=== PATIENT | female | born 1995 | race Caucasian/White ===

== ENCOUNTER 2019-12-21 12:05 | Emergency (ER) | payer OTHER, SELFPAY ==
--- NOTE | ~2019-12-21 | CT_ITS ---
EXAMINATION: CTA chest PE protocol DATE: 12/21/2019 13:24 INDICATION: Shortness of breath. Left shoulder pain. TECHNIQUE: Computed tomography angiography (CTA) of the chest was performed with 100 mL Omnipaque-350 intravenous contrast timed to evaluate the pulmonary arteries. Coronal maximum intensity projection 3D-reconstructions were created by the technologist. Automated exposure control and iterative reconst ruction technique were employed. The dose-length product was 779.97 mGy-cm. COMPARISON: None. FINDINGS: There is minimal atelectasis bilaterally. No pleural effusion. The heart size is normal. No pericardial effusion. There is no pulmonary embolus. The bones are unremarkable. IMPRESSION: 1. No pulmonary embolus. Reviewed, dictated and finalized at location A. IMPRESSION: 1. No pulmonary embolus.
[2019-12-21 12:19] VITALS: BP 136/92; PULSE 112; RESP 17; TEMP 36.9; O2SAT 100
--- NOTE | 2019-12-21 12:20 | ECG_ITS ---
Measurements Intervals [place] Rate: 118 P: 46 MD: 148 QRS: 6 QRSD: 101 T: 14 QT: 347 QTc: 487 Interpretive Statements SINUS TACHYCARDIA VOLTAGE CRITERIA FOR LVH MINIMAL Q WAVES- ANTEROLAT/HIGH LAT LEADS BORDERLINE T WAVE ABNORMALITY- INFERIOR LEADS BASELINE ARTIFACT- II, III, AVL, AVF, V1 ABNORMAL ECG Electronically Signed On 12-21-2019 18:06:58 CDT by Francis Abbasi D.O.
[2019-12-21 12:42] LABS: Basophils Percent Auto 0.3 % (0.2-1.2); Eosinophils Absolute Auto 0.1 K/mm3 (0-0.3); Eosinophils Percent Auto 0.4 % (0-4.4); Hematocrit 44.4 % (37.0-47.0); Hemoglobin 15.3 g/dL (12.0-15.0); Immature Granulocyte Absolute 0.05 K/mm3 (0.00-0.031); Immature Granulocyte Percent A 0.3 % (0-0.5); Lymphocytes Absolute Auto 4.96 K/mm3 (0.9-3.2); Lymphocytes Percent Auto 32.9 % (18.3-44.2); Mean Corpuscular HGB Conc 34.5 g/dl (32-36); Mean Corpuscular Hemoglobin 30.1 pg (26-34); Mean Corpuscular Volume 87.4 fl (80-100); Mean Platelet Volume 8.7 fl (7.4-10.4); Monocytes Absolute Auto 0.8 K/mm3 (0.1-0.6); Monocytes Percent Auto 5.4 % (2.6-8.5); Neutrophils Absolute Auto 9.2 K/mm3 (1.3-6.7); Neutrophils Percent Auto 60.7 % (45.5-73.1); Platelet Count Result 331 k/mm3 (150-375); Red Blood Count 5.08 M/mm3 (4.2-5.4); Red Cell Distribution Width 12.6 % (11.5-14.5); White Blood Count 15.1 K/mm3 (4.5-10.0)
[2019-12-21 12:52] LABS: Prothrombin Time 12.6 Seconds (11.1-14.7)
[2019-12-21 12:53] LABS: Partial Thromboplastin Time 26.9 SECONDS (22.3-36.8)
[2019-12-21 12:55] LABS: Anion Gap 6 mmol/L (8-16); Blood Urea Nitrogen 11 mg/dL (7-17); Calcium 9.4 mg/dL (8.4-10.2); Carbon Dioxide 29 mmol/L (22-30); Chloride 102 mmol/L (98-107); Estimated CRCL calculation 160 ml/min; Estimated Glomerular Filt Rate > 60; Glucose 105 mg/dL (65-105); Potassium 3.6 mmol/L (3.4-5.0); Sodium 137 mmol/L (137-145)
[2019-12-21 13:01] VITALS: BP 112/71; PULSE 86; RESP 16; O2SAT 98
[2019-12-21 13:02] LABS: NT Pro B Type Natriuretic Pept 24 PG/ML (5-100)
[2019-12-21 13:06] LABS: Troponin I < 0.012 ng/mL (0.000-0.034)
--- NOTE | 2019-12-21 13:11 | ED.GENADULT ---
HPI - General Adult General Chief complaint: Extremity Injury, Upper Stated complaint: left shoulder pain Time Seen by Provider: 12/21/19 12:07 History of Present Illness HPI narrative: Patient is a 24-year-old female who presents to the ER with left shoulder pain. Is anterior aspect left shoulder near the chest wall. Pain was sudden onset around 7 AM. It is persisted and not gotten better. Its worse with taking deep breaths. She feels as if she is short of breath when she exerts herself. No alleviating factors that she is noted. No infectious symptoms. Related Data Allergies Allergy/AdvReac Type Severity Reaction Status Date / Time No Known Allergies Allergy Verified 12/21/19 12:27 Review of Systems Review of Systems: All systems reviewed & are unremarkable except as noted in HPI and below Constitutional: Constitutional: Denies chills, Reports fatigue and Denies fever(s) ENT: Denies nasal congestion and Denies sore throat Cardiovascular: Cardiovascular: Denies chest pain, Denies rapid heart rate and Denies radiating jaw, neck or arm pain Respiratory: Respiratory: Denies cough, Reports dyspnea and Denies wheezing Musculoskeletal: Comments: Left shoulder pain. PMFSH Past Medical History Medical History (Updated 12/21/19 @ 14:02 by Stanley Mckeon MD) Healthy female adult Surgical History Surgical History (Updated 12/21/19 @ 13:30 by Stanley Mckeon MD) No history of previous surgery Social History Social History (Updated 12/21/19 @ 13:30 by Stanley Mckeon MD) Tobacco type: cigars Gender identity (if verbalized by the patient): Female Exam Narrative: Exam Narrative: GENERAL: Well-appearing, well-nourished, and in no acute distress. HEAD: Normocephalic, atraumatic. ENT: Mucous membranes moist. CHEST: Clear to auscultation. No respiratory distress. HEART: Tachycardic and regular. Normal peripheral pulses. ABDOMEN: Soft, nontender, nondistended. EXTREMITIES: Normal range of motion. No edema. No reproducible tenderness of the left shoulder. SKIN: Warm, dry, no rash. NEURO: Alert and oriented x3. Course Course Emergency Course: Patient informed of results. Refused morphine. Discharge home. Vital Signs Vital signs: Vital Signs Temperature 98.4 F 12/21/19 12:19 Pulse Rate 112 H 12/21/19 12:19 Respiratory Rate 17 12/21/19 12:19 Blood Pressure 136/92 H 12/21/19 12:19 Pulse Oximetry 100 12/21/19 12:19 Temperature 98.4 F 12/21/19 12:19 Pulse Rate 89 12/21/19 13:32 Respiratory Rate 17 12/21/19 13:32 Blood Pressure 132/88 12/21/19 13:32 Pulse Oximetry 98 12/21/19 13:32 Medical Decision Making Vital Signs Vital Signs: Vital Signs Temperature 98.4 F 12/21/19 12:19 Pulse Rate 112 H 12/21/19 12:19 Respiratory Rate 17 12/21/19 12:19 Blood Pressure 136/92 H 12/21/19 12:19 Pulse Oximetry 100 12/21/19 12:19 Temperature 98.4 F 12/21/19 12:19 Pulse Rate 89 12/21/19 13:32 Respiratory Rate 17 12/21/19 13:32 Blood Pressure 132/88 12/21/19 13:32 Pulse Oximetry 98 12/21/19 13:32 Lab Data Result diagrams: 12/21/19 12:33 12/21/19 12:33 Labs: Lab Results 12/21/19 12/21/19 12/21/19 Range/Units 12:33 12:33 12:33 WBC 15.1 H (4.5-10.0) K/mm3 RBC 5.08 (4.2-5.4) M/mm3 Hgb 15.3 H (12.0-15.0) g/dL Hct 44.4 (37.0-47.0) % MCV 87.4 (80-100) fl MCH 30.1 (26-34) pg MCHC 34.5 (32-36) g/dl RDW 12.6 (11.5-14.5) % Plt Count 331 (150-375) k/mm3 MPV 8.7 (7.4-10.4) fl Immature Gran % (Auto) 0.3 (0-0.5) % Neut % (Auto) 60.7 (45.5-73.1) % Lymph % (Auto) 32.9 (18.3-44.2) % Cataño % (Auto) 5.4 (2.6-8.5) % Eos % (Auto) 0.4 (0-4.4) % Baso % (Auto) 0.3 (0.2-1.2) % Lymph # (Auto) 4.96 H (0.9-3.2) K/mm3 Cataño # (Auto) 0.8 H (0.1-0.6) K/mm3 Eos # (Auto) 0.1 (0-0.3) K/mm3 Baso # (Auto) 0.0 (0.0-0.1) K/mm3 Abs
[2019-12-21 13:32] VITALS: BP 132/88; PULSE 89; RESP 17; O2SAT 98
== END 2019-12-21 14:28 | disposition home or self-care (01) ==
PROVIDERS: Emergency Provider Emergency Medicine; PCP Family Medicine
DX: M25.512 Pain in left shoulder (principal); F17.290 Nicotine dependence, other tobacco product, uncomplicated
CPT/HCPCS: 36415; 71275; 80048; 81025; 83880; 84484; 85025; 85610; 85730; 93005; 99284; J2405; Q9967

== ENCOUNTER 2022-12-07 00:52 | Day surgery (SDC) | payer OTHER, SELFPAY ==
[2022-12-01 10:05] VITALS: BMI 39.1
--- NOTE | 2022-12-01 10:10 | PC.NURSE ---
Report to the Outpatient Waiting Room, entrance under the green pavilion located off [facility], at time 1000 on date 12/07/22. Planned Procedure Time: 1200. Time changes happen often and if your time is changed the preop area will call you the afternoon before. - You and your visitor will be asked to self-screen and do not enter if you have any COVID symptoms. - A mask is optional within the hospital at this time. Patients may have clear liquids (water, carbonated beverages, clear teas, apple juice) until 3 hours prior to surgery with a maximum of 20 ounces. - No food from midnight until time of surgery Take the following medications with a SIP of water the morning of surgery: NONE DO NOT STOP ANY OF YOUR OTHER PRESCRIPTION MEDICATIONS PRIOR TO SURGERY ?EXCEPT THE FOLLOWING Medications to discontinue per physician: VITAMINS Date to take last dose: 12/03/22 Please no make-up, nail niuean, hairspray, perfume, deodorant, or body powder the day of surgery. No jewelry (including any body piercings) or valuables the day of surgery, leave them at home. Please take a shower or bath the night before, or the morning of, surgery with an antibacterial soap. Wear comfortable, loose fitting clothing. - Jewelry must be removed prior to entering the operating room. Rings and piercings that are not removed may be cut off. - The hospital will not accept responsibility for valuables. - Please leave all valuables, including medications, at home the day of surgery. If you are going home after surgery, a licensed hazardous materials tanker driver must drive you home. - NO public transportation without another adult if you receive anesthesia. - We recommend that an adult stay with you for 24 hours following discharge. - We also recommend that you do not drive, make important decision, drink alcoholic beverages, or take any drugs that were not prescribed by your health care provider for at least 24 hours after your discharge time. Follow any additional instructions given to you from your surgeon. If you or anyone in your household have experienced Covid symptoms in the past week, please notify your surgeon or the nurse liaison at the phone number below for possible testing. Telephone instructions given to PT - ROBE MILLER and asked if any additional questions and then verbalized understanding. Patient advised to call surgeon office or pre surgery nurse liaison [phone] if any additional questions.
[2022-12-07] VITALS (13 sets, daily range): BP systolic 110–163; BP diastolic 70–96; PULSE 58–98; RESP 12–20; TEMP 36.1–36.2; O2SAT 95–100
--- NOTE | 2022-12-07 09:13 | PM.IMHP ---
H&P: HPI History of Present Illness Date/Time: 12/07/22 09:13 Chief Complaint: Painful periods Narrative: 27 y/o who has a Mirena IUD. When she does not have a progestin IUD in place, her menses are especially painful. She desires permanent sterilization, and would also like permanent treatment for the painful menses. Review of Systems Review of Systems: All systems reviewed & are unremarkable except as noted in HPI and below PMFSH Past Medical History Medical History (Updated 12/07/22 @ 09:16 by Otoniel Thomas MD) Healthy female adult Healthy female adult Surgical History Surgical History History of delivery x2 No history of previous surgery No history of previous surgery Social History Social History Smoking status: Current some day smoker Tobacco type: cigars Additional smoking assessment comments: 1/MONTH Alcohol intake: never Substance use: never Substance use type: does not use Living arrangements: with family Gender identity (if verbalized by the patient): Female Spiritual care concerns: No Meds Home Medications and Allergies Home Medications Medication Instructions Recorded Confirmed Type multivitamin 1 tablet PO DAILY 12/01/22 12/01/22 History Allergies Allergy/AdvReac Type Severity Reaction Status Date / Time No Known Allergies Allergy Verified 12/01/22 10:05 Exam Const: Orientation/consciousness: patient oriented x3 Other: Well-developed, well-nourished female in no acute distress. Neck: Thyroid: thyroid normal Lymphatic: no lymphadenopathy noted (in neck, axilla or inguinal nodes) Resp: Effort & Inspection: normal respiratory effort Auscultation: clear to auscultation bilaterally Cardio: Rate: regular rate Rhythm: regular rhythm Heart sounds: S1 normal heart sound present and S2 normal heart sound present GI: Other: ABD: Soft, nontender, nondistended. No guarding or rebound tenderness. No hepatosplenomegaly. : General: Yes no CVA tenderness Other: External genitalia: normal female hair distribution, without lesion. Urethral meatus: no lesion, non prolapsed. Bladder: no mass, nontender Vagina: well-estrogenized, without lesion or discharge. No cystocele or rectocele. Cervix: no lesion or discharge. Uterus: small, anteverted, freely mobile, nontender Adnexa: no mass or tenderness. Anus/perineum: no lesions, nontender Back/Spine/Pelvis: Back: no CVA tenderness Skin: General skin exam: normal color and no rashes or lesions noted Neuro: General: patient oriented x3 Extrem: Other: Extremities: nontender with no edema Psych: Mental Status: mental status grossly normal Affect: normal affect Assessment and Plan Assessment and plan (1) Dysmenorrhea: Code(s): N94.6 - Dysmenorrhea, unspecified Status: Acute Assessment and Plan: A: Dysmenorrhea, desired sterility. P: We have reviewed medical as well as surgical options for treatment, and she desires the latter. Specifically, I have offered her laparoscopic bilateral tubal ligation, removal of IUD, hysteroscopy, dilation and sharp curettage, and endometrial ablation. She understands there are temporary methods of contraception available to her. She understands that there are nonsurgical options as well as surgical options. She understands that tubal ligation will render her permanently sterile. She understands that there is a failure rate associated with tubal ligation, as well as an inherent ectopic gestation risk. Furthermore, she understands risks of surgery to include risks of anesthesia, risks of pain, infection, bleeding, blood products, thromboembolic phenomena and damage to adjacent structures such as bowel, bladder, ureters, blood vessels and nerves. She understands all these risks and elects to proceed with
[2022-12-07] MEDS: ACETAMINOPHEN 500 MG TABLET 1000 MG PO (10:23)
[2022-12-07] MEDS: LACTATED RINGERS 1,000 ML 30 ML IV CONT ×2 (10:27→13:35)
--- NOTE | 2022-12-07 11:49 | WPDANESEPPF ---
Anes - Initial Pre Proc Eval Procedure: Operation Date: 12/07/22 12:00 Proposed Procedures p Hysteroscopy, Dilation and Curettage with Mari Endometrial Ablation - Otoniel Thomas MD s Laparoscopic Bilateral Tubal Sterilization - Otoniel Thomas MD Date/Time: 12/07/22 11:49 Surgeon: Otoniel Thomas MD Pre Op Diagnosis: desires sterilization, heavy bleeding,dysmenorrhea Patient Data Age: 27 Gender: F Height: 1.7 m Weight: 113.5 kg Last Vital Signs Temp 36.2 C L 12/07/22 10:15 Pulse 98 12/07/22 10:15 Resp 20 12/07/22 10:15 BP 163/96 H 12/07/22 10:15 Pulse Ox 100 12/07/22 10:15 O2 Del Method Room Air 12/07/22 10:15 Allergies Allergy/AdvReac Type Severity Reaction Status Date / Time No Known Allergies Allergy Verified 12/07/22 10:14 Home Medications Medication Instructions Recorded Confirmed Type multivitamin 1 tablet PO DAILY 12/01/22 12/01/22 History Patient hx anesthesia problems: none Family hx anesthesia problems: none Results Review: All pre-operative results and documents have been reviewed as part of the pre-operative evaluation. [facility] Past Medical History Medical History (Updated 12/07/22 @ 11:49 by Marin Arnold MD) Morbid obesity Surgical History Surgical History History of delivery x2 No history of previous surgery No history of previous surgery Social History Social History Smoking status: Current some day smoker Tobacco type: cigars Additional smoking assessment comments: 1/MONTH Alcohol intake: never Substance use: never Substance use type: does not use Living arrangements: with family Gender identity (if verbalized by the patient): Female Spiritual care concerns: No Anes - Eval Final PreProcedure Day of Procedure 12/07/22 11:49 Patient weight: morbidly obese Heart: regular rate and rhythm Lungs: clear to auscultation Airway: Mallampati scale class II Neurological: alert and oriented Last oral intake: >/= 8 hours ASA classification: III Emergent: no Anesthetic plan: proceed Anesthesia type and monitoring: general ETT and standard monitoring Results Review: All pre-operative results and documents have been reviewed as part of the pre-operative evaluation. Informed Consent: The patient's anesthetic plan and its attendant risks and benefits were discussed with the patient/family/POA. Questions were solicited and answers provided to the satisfaction of the patient/family/POA.
--- NOTE | 2022-12-07 11:58 | WPDHPUPDATE1 ---
History and Physical Update Update Date/Time: 12/07/22 11:58 History and Physical has been reviewed, including an updated exam of the patient. There are NO changes in the patient's condition. Risks, benefits, and alternatives have been discussed and questions answered. Patient agrees to proceed with procedure.
[2022-12-07] MEDS: LIDOCAINE HCL 1% LOCAL INJ 20 ML VIAL 17 ML INFILTRATE (12:52)
--- NOTE | 2022-12-07 13:03 | W.PM.PROC2 ---
Procedure Note - Detailed Date of Procedure 12/07/22 Pre-op Diagnosis Dysmenorrhea Desired sterility Post-op Diagnosis Same Procedure Performed Laparoscopic bilateral tubal ligation with Falope rings Removal of IUD Hysteroscopy Dilation and sharp curettage Endometrial ablation Surgeon Otoniel Thomas MD Anesthesia General and Local (1% lidocaine) Findings Normal-appearing uterus, tubes and ovaries. Normal-appearing vermiform appendix. Description of Procedure The patient was taken to the operating room where general endotracheal anesthesia was administered. She was prepared and draped in the usual sterile fashion in dorsal lithotomy position. The bladder was drained with a red rubber catheter. A sterile speculum was placed into the vagina. The anterior lip of the cervix was grasped with a single-tooth tenaculum. The acorn uterine manipulator was placed. The speculum was withdrawn. Gloves were changed and attention was turned the abdomen. An infraumbilical skin incision was made with a scalpel. The abdomen was tented and a 5mm bladeless trocar was advanced under direct laparoscopic visualization. Pneumoperitoneum was administered using carbon dioxide gas. A survey of the pelvis and abdomen revealed the findings noted above. A second skin incision was made in the midline above the symphysis pubis and an 8mm bladeless trocar was advanced under direct laparoscopic visualization. The fallopian tube on the right side was followed out to the fimbriated end for identification. It was then grasped in the midportion with the Falope ring applicator. The Falope ring was tented applied. A good loop of tube was noted to be distal to the ring. Hemostasis was excellent. The device was reloaded and the contralateral tube was similarly identified and ligated. An excellent application was noted here as well. A total of 7mL of 1% lidocaine was infiltrated into the serosa of the proximal tubes for postoperative anesthesia. The ports were withdrawn. The gas was allowed to escape. The skin incisions were reapproximated using interrupted subcuticular sutures of 4 0 Vicryl. Dermaflex was applied externally. Attention was redirected to the vagina, where the acorn manipulator was withdrawn and the speculum reintroduced. The IUD strings were grasped with a ring forceps and the IUD was easily removed, intact, and discarded. Ten mL of 1% lidocaine was administered in a paracervical block. The cervix was then gently dilated using Hegar dilators until an 8 mm dilator could be passed. Hysteroscopy was performed using sterile saline as a distention medium. Findings are as noted above. Sharp curettage was then performed, and endometrial curettings were collected on a Telfa pad and passed off to be sent to pathology. Finally, the the Mari device was advanced and endometrial ablation commenced without difficulty. The device was withdrawn and a second look was taken using the hysteroscope. Excellent coverage of the endometrial cavity was noted. The tenaculum was removed. Hemostasis was excellent. Sponge, lap, needle and instrument counts were correct. The patient was awakened and taken to the recovery room in stable condition. I was present and scrubbed through the entire procedure. Implants Falope rings x 2 Estimated Blood Loss 5 Drains No Packing No Pathology Yes (Endometrial curettings) Complications None Condition Stable Disposition PACU
[2022-12-07] MEDS: fentaNYL CITRATE INJ (*CRX) 100 MCG/2 ML VIAL 25 MCG IV PUSH ×8 (13:26→15:18)
[2022-12-07] MEDS: oxyCODONE HCL (*CRX) 5 MG TAB IR PO (14:33)
[2022-12-07] MEDS: HYDROmorphone HCL INJ (*CRX) 1 MG/ML SYR 0.5 MG IV PUSH ×2 (16:04→16:26)
[2022-12-07] MEDS: ONDANSETRON INJ 4 MG/2 ML VIAL IV PUSH (16:29)
== END 2022-12-07 16:45 | disposition home or self-care (01) ==
PROVIDERS: PCP Family Medicine; Visit Provider Obstetrics & Gynecology
PROC: 0U5B8ZZ Destruction of Endometrium, Via Natural or Artificial Opening Endoscopic (ICD-10-PCS; CPT 58563; principal; 2022-12-07 12:00)
PROC: (CPT 58671; 2022-12-07 12:00)
DX: N94.6 Dysmenorrhea, unspecified (principal); Z30.2 Encounter for sterilization; Z30.432 Encounter for removal of intrauterine contraceptive device; N72 Inflammatory disease of cervix uteri; Z72.0 Tobacco use; E66.01 Morbid (severe) obesity due to excess calories; Z68.39 Body mass index [BMI] 39.0-39.9, adult
CPT/HCPCS: 58671; 58563; 58301; 88305; A4264; A9270; J0330; J1170; J2250; J2405; J2704; J3010; J7120

== ENCOUNTER 2025-01-08 16:08 | Outpatient (CLI) | payer OTHER, SELFPAY ==
[2025-01-08 17:01] LABS: Hematocrit 40.6 % (37.0-47.0); Hemoglobin 14.1 g/dL (12.0-15.0); Immature Granulocyte Percent A 0.3 % (0-0.5); Lymphocytes Absolute Auto 4.82 K/mm3 (0.9-3.2); Mean Corpuscular HGB Conc 34.7 g/dl (32-36); Mean Corpuscular Hemoglobin 29.6 pg (26-34); Mean Corpuscular Volume 85.1 fl (80-100); Nucleated Red Blood Cells Absolute Auto 0.000 K/mm3 (0.0-0.012); Nucleated Red Blood Cells Perc 0.0 % (0.0-0.2); Platelet Count Result 305 k/mm3 (150-375); Red Blood Count 4.77 M/mm3 (4.2-5.4); White Blood Count 10.3 K/mm3 (4.5-10.0)
[2025-01-08 17:12] LABS: Alanine Aminotransferase 38 U/L (6-35); Albumin Level 4.6 g/dL (3.5-5.1); Alkaline Phosphatase 68 U/L (38-126); Anion Gap 9 mmol/L (4-12); Aspartate Amino Transferase 32 U/L (14-36); Bilirubin,Total 0.8 mg/dL (0.2-1.3); Blood Urea Nitrogen 12 mg/dL (7-17); Calcium 9.0 mg/dL (8.4-10.2); Carbon Dioxide 25 mmol/L (22-30); Chloride 102 mmol/L (98-107); Cholesterol 259 mg/dL (0-200); Estimated Glomerular Filt Rate > 60; Glucose 161 mg/dL (65-110); HDL Direct 38 mg/dL; Potassium 3.7 mmol/L (3.4-5.0); Sodium 136 mmol/L (137-145); Total Protein 7.7 g/dL (6.3-8.2); Triglycerides 187 mg/dL (<150)
[2025-01-08 17:34] LABS: Hemoglobin A1C 7.8 % (<5.7)
[2025-01-08 17:56] LABS: Thyroid Stimulating Hormone Reflex 1.110 uIU/mL (0.465-4.68)
--- OUTSIDE RECORDS SUMMARY | 2025-01-09 15:08 | XMS_ITS | Clinical Summary ---
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 This disclosure is being madepursuant to the Care Everywhere program and may not contain all information available regarding this patient. Last updated 17.[employer] [facility] Allergies No known active allergies Medications * Be aware that medications may not be up to date on this document. Alwaysverify current medications with the patient. ibuprofen (MOTRIN) 600 MG tablet Take 1 Tab by mouth every 6 hours as needed for Pain. 120 Tab 3 02/13/2013 Active docusate sodium (COLACE) 100 MG capsule Take 1 Cap by mouth 2 times daily. 60 Cap 2 02/13/2013 Active oxycodone-acetam inophen (PERCOCET) 5-325 MG tablet Take 1 Tab by mouth every 6 hours as needed for Pain. 45 Tab 0 02/13/2013 Active ferrous sulfate 325 (65 FE) MG tablet Take 1 Tab by mouth daily with breakfast. 30 Tab 3 02/13/2013 Active Active Problems Problem Noted Date Diagnosed Date Short cervix affecting 01/15/2013 abnormality affecting management of mother, antepartum condition or complication 11/30/2012 Overview (12/04/2014): Bilateral clubbed feet Supervision of other high-risk 013 Overview (01/11/2015): A+/I/-/-, NR Dating by L=20w Resolved Problems Problem Noted Date Diagnosed Date Resolved Date abnormality in pregnan cy-Persistant breech presentation, possible arthrogryposis, bilateral club feet 01/16/2013 02/13/2013 Overview (01/18/2013): Images from the original note were not included. LONG TERM PATIENT--PLEASE CALL [phone] IF TRIAGED OR ADMITTED THIS CARE PLAN IS BASED ON EVALUATION, SUBJECT TO CHANGE BASED ON ASSESSMENT. Diagnosis: Persistant breech presentation, possible arthrogryposis, bilateral club feet Please see Images under Chart Review for US/MRI reports. Planned surveillance: care with Dr. Thomas. Repeat growth ultrasound at [facility] 12..13 @ 1400 Planned delivery location: [facility] Planned [place] at delivery: [facility] Planned mode of delivery: [facility] Care Provider: Dr. Otoniel Thomas [facility] Care [place] consultants involved: [facility]- Ellie; Neonatology- Gabe; Genetics- Polina; Communications Advisor- Opal; Footprints- Jenny care needed at : Neonatology to attend delivery Planned care after delivery: per 01.17 Neonatology Consult Jaylan will require further evaluation of his arthrogryposis following delivery. If he is stable from a cardiopulmonary standpoint he can remain at [facility] until his mother is discharged, then may be transferred to [facility] for further evaluation. We also discussed the possibility of discharge, if appropriate, to pursue evaluation as an outpatient. We discussed consulting neurology, orthopedics and therapy services for Jaylan. Genetics note: genetic diagnostic testing was not performed. Please request Genetics consult postnatally if clinically indicated by calling Dr. Brian Jerome at [phone] prior to ordering genetic studies. Social Service Note: Patient will need to get baby enrolled in Medicaid. 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 *For further coordination, please refer to the consulting physician s notes for management of the * Immunizations Immunization Administration Dates Next Due INFLUENZA VACCINE 01/04/2013 TDAP (7yrs+) 02/12/2013 Family History Medical History Relation Name Comments Cancer Maternal Grandmother Diabetes Mother Relation Name Status Comments Maternal Grandmother Mother Social History Tobacco Use Types Packs/Day Years Used Date Smoking Tobacco: Never Alcohol Use Standard Drinks/Week Comments No 0 (1 standard drink = 0.6 oz pur e alcohol) Comments Unknown Sex and Gender Information Value Date Recorded Sex Assigned at Not on file Legal Sex Female 12:55 PM CDT Gender Identity Not on file Sexual Orientation Not on file Last Filed Vital Signs Vital Sign Reading Time Taken Comments Blood Pressure 112/68 02/18/2013 2:41 PM BIRD TENDER Pulse 82 02/13/2013 7:30 AM BIRD TENDER Temperature 36.8 C (98.3 F) 02/13/2013 7:30 AM BIRD TENDER Respiratory Rate 16 02/13/2013 7:30 AM BIRD TENDER Oxygen Saturation 97% 02/10/2013 12:35 PM BIRD TENDER Inhaled Oxygen Concentration - - Weight 80.3 kg (177 lb) 02/18/2013 2:41 PM BIRD TENDER Height 170.2 cm (5' 7) 02/10/2013 7:56 AM BIRD TENDER Body Mass Index 27.72 02/10/2013 7:56 AM BIRD TENDER Plan of Treatment Health Maintenance Due Date Last Done Comments HIV SCREENING 2008 HEPATITIS C SCREENING 03/26/2011 HEPATITIS B VACCINE (1 of 3 - 19+ 3-dose series) 2012 PAP SMEAR 2014 HPV VACCINE (1 - 3-dose SCDM series) 2020 DTAP/TDAP/TD VACCINES (2 - T d or Tdap) 02/12/2023 02/12/2013 DEPRESSION SCREENING 03/06/2024 COVID-19 VACCINE ( - 2023-2 5 season) 2024 INFLUENZA VACCINE (#1) 2024 01/04/2013 ZOSTER VACCINE (1 of 2) 2043 HIB VACCINE Aged Out No longer eligi ble based on patient's age to complete this topic MENINGOCOCCAL (Group B) VACC INE SHARED DECISION-MAKING Aged Out No longer eligibl e based on patient's age to complete this topic MENINGOCOCCAL GROUPS A/C/Y/W VACCINE Aged Out No longer eligible b ased on patient's age to complete this topic PNEUMOCOCCAL VACCINE Aged Out No long er eligible based on patient's age to complete this topic Insurance [facility] Advance Directives * FULL RESUSCITATION (Latest Code Status on File) Date Activated Date Inactivated Comments 02/10/2013 8:05 AM 02/13/2013 2:16 PM Care Teams Glass Cutter Helper Relationship Specialty Start Date End Date Frederick Argueta MD PCP - General Obstetrics and Gynecology 01/16/13
--- OUTSIDE RECORDS SUMMARY | 2025-01-09 15:08 | XMS_ITS | Clinical Summary ---
Author Organization [facility] [place] [address] [facility] lto Address [address] [place] [address] Care Team Providers Care Social Sciences Research Scientist Name Role Phone Mason Vasquez MD Primary Care Provider [phone] Allergies No known active allergies Medications fluticasone propionate (FLONASE) 50 mcg/actuation nasal sprayIndication s:Viral URI with cough Administer 2 sprays into each nostril daily 16 g 5 0 Active Active Problems No known active problems Immunizations Immunization Administration Dates Next Due Hep B Vaccine 10/16/2014,04/07/2011 Hep B, Adolescent or Pediatric 04/07/2015 Influenza, Unspecified 11/04/2016 Tdap 10/05/2007 Surgical History Surgery Date Site/Laterality Comments SECTION TONSILLECTOMY when 2 or 3 years old Medical History Medical History Date Comments Hx Other Medical 02/10/2013 ; Comm ents: DRS 05/05/2014 - Family History Medical History Relation Name Comments Diabetes type II Mother 2 Diabetes me llitus type 2; Hypothyroidism Mother 2 hypothyroidis m; Relation Name Status Comments Mother 1 Alive Mother 2 Social History Tobacco Use Types Packs/Day Years Used Date Smoking Tobacco: Never Smokeless Tobacco: Never Comments No Sex and Gender Information Value Date Recorded Sex Assigned at Not on file 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 Gender Identity Not on file Sexual Orientation Not on file Last Filed Vital Signs Vital Sign Reading Time Taken Comments Blood Pressure 100/78 07/13/2021 12:09 PM CDT Pulse 110 07/13/2021 12:09 PM CDT Temperature 38.1 C (100.6 F) 07/13/2021 12:09 PM CDT Respiratory Rate 16 07/13/2021 12:09 PM CDT Oxygen Saturation 98% 07/13/2021 12:09 PM CDT Inhaled Oxygen Concentration - - Weight 113.4 kg (250 lb) 07/13/2021 12:09 PM CDT Height 170.2 cm (5' 7) 07/13/2021 12:09 PM CDT Body Mass Index 39.16 07/13/2021 12:09 PM CDT Plan of Treatment Not on file Insurance [facility] CHO[facility] PLUS Care Teams Social Sciences Research Scientist Relationship Specialty Start Date End Date Mason Vasquez MD [address] [place] [address] PCP - General 06/03/16
== END 2025-01-08 16:09 | disposition home or self-care (01) ==
LOC: ANHLAB 16:11
PROVIDERS: Visit Provider Obstetrics & Gynecology
DX: E66.9 Obesity, unspecified (principal); N94.6 Dysmenorrhea, unspecified
CPT/HCPCS: 36415; 80053; 80061; 83036; 84443; 85025